=== PATIENT | female | born 2000 | race African-American/Black ===

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

== ENCOUNTER 2020-06-01 20:13 | Emergency (ER) | payer MEDICAID, OTHER ==
[~2020-06-01] VITALS: Ht 162.6 cm; Wt 80.0 kg
[2020-06-01 21:21] LABS: CLARITY URINE TURBID (CLEAR); COLOR URINE YELLOW (YELLOW); KETONES URINE TRACE (NEGATIVE); LEUKOCYTE ESTERASE URINE 3+ (NEGATIVE); NITRITE URINE NEGATIVE (NEGATIVE); OCCULT BLOOD URINE NEGATIVE (NEGATIVE); PH URINE 6.5 (4.5-8.0); PROTEIN URINE 1+ (NEGATIVE); SPECIFIC GRAVITY URINE 1.029 (1.005-1.030)
[2020-06-01 21:38] VITALS: BP 120/75
[2020-06-05 04:09] LABS: NEISSERIA GONORRHOEAE NAA Negative (Negative)
== END 2020-06-01 21:41 | disposition home or self-care (01) ==
LOC: ER 20:13
DX: N39.0 Urinary tract infection, site not specified (principal)
CPT/HCPCS: 81003; 87077; 87186; 87491; 87591; 99283

== ENCOUNTER 2021-06-21 09:26 | Emergency (ER) | payer OTHER ==
[~2021-06-21] VITALS: Ht 167.6 cm; Wt 91.0 kg
[2021-06-21] MEDS ORDERED: HYDROCODONE/ACETAMINOPHEN 5/325MG TABLET PO STA (09:47)
[2021-06-21 10:36] LABS: BASOPHILS % 0.3 % (0.0-2.0); EOSINOPHILS % 0.6 % (0.0-5.0); HEMATOCRIT. 43.5 % (36.0-48.0); HEMOGLOBIN. 14.8 g/dL (12.0-16.0); LYMPHOCYTES % 22.7 % (20.0-50.0); MEAN CORPUSCULAR VOLUME 91.1 fL (81.0-99.0); MEAN PLATELET VOLUME 8.3 fl (7.4-10.4); MONOCYTES % 11.8 % (2.0-8.0); NEUTROPHILS % 64.6 % (40.0-76.0); PLATELET 411 x1000/uL (130-400); RED BLOOD CELL COUNT 4.77 mill/uL (4.2-5.4); RED CELL DISTRIBUTION WIDTH 13.5 % (11.6-14.6)
[2021-06-21 10:42] LABS: CLARITY URINE CLOUDY (CLEAR); COLOR URINE DARK YELLOW (YELLOW); KETONES URINE 4+ (NEGATIVE); LEUKOCYTE ESTERASE URINE 1+ (NEGATIVE); NITRITE URINE NEGATIVE (NEGATIVE); OCCULT BLOOD URINE 1+ (NEGATIVE); PROTEIN URINE TRACE (NEGATIVE); SPECIFIC GRAVITY URINE 1.021 (1.005-1.030)
[2021-06-21 10:45] LABS: CHLORIDE 105 mEq/L (98-107)
[2021-06-21 10:48] LABS: HCG SCREEN NEGATIVE
[2021-06-21 11:14] VITALS: BP 114/67
[2021-06-21] MEDS ORDERED: TOPUD PO (11:56)
[2021-06-21] MEDS ORDERED: NITR100C PO (11:56)
== END 2021-06-21 13:05 | disposition home or self-care (01) ==
LOC: ER 09:35
DX: N39.0 Urinary tract infection, site not specified (principal)
CPT/HCPCS: 36415; 74176; 80053; 81003; 84703; 85025; 99284

== ENCOUNTER 2021-11-13 12:53 | Emergency (ER) | payer OTHER ==
[~2021-11-13] VITALS: Ht 162.6 cm; Wt 82.0 kg
[~2021-11-13 12:53] MED LIST: NITR100C PO; TOPUD PO
[2021-11-13] MEDS ORDERED: KETOROLAC 60MG/2ML VIAL IM ONE (17:00)
[2021-11-13] MEDS ORDERED: IBUP-2029 MT (17:41)
[2021-11-13] MEDS ORDERED: BENZ1LOZ73 MT (17:41)
[2021-11-13 18:13] VITALS: BP 115/78
== END 2021-11-13 18:13 | disposition home or self-care (01) ==
LOC: ER 12:53
DX: J02.9 Acute pharyngitis, unspecified (principal)
CPT/HCPCS: 81025; 96372; 99283; J1885

== ENCOUNTER 2023-02-20 12:04 | Emergency (ER) | payer OTHER ==
[~2023-02-20] VITALS: Ht 162.6 cm; Wt 91.0 kg
[~2023-02-20 12:04] MED LIST changes: +BENZ1LOZ73 MT; +IBUP-2029 MT
[2023-02-20 12:09] VITALS: BP 111/67; PULSE 86; RESP 20; TEMP 98.3; O2SAT 99
[2023-02-20] MEDS ORDERED: TETANUS, DIPHTHERIA, PERTUSSIS VAC/PF 0.5ML (>10YR OLD) IM ONE (13:30)
[2023-02-20] MEDS ORDERED: BACITRACIN ZINC OINT UDPKT TOP ONE (13:30)
[2023-02-20] MEDS ORDERED: LIDOCAINE HCL/PF 1% 10 MG/ML 5ML VIAL INFIL ONE (13:30)
== END 2023-02-20 14:44 | disposition left against medical advice (07) ==
LOC: ER 12:04
DX: S01.81XA Laceration without foreign body of other part of head, initial encounter (principal); J45.909 Unspecified asthma, uncomplicated; Y04.0XXA Assault by unarmed brawl or fight, initial encounter; Y93.89 Activity, other specified; Y92.89 Other specified places as the place of occurrence of the external cause; Y99.8 Other external cause status
CPT/HCPCS: 12011; 99282; Z7610

== ENCOUNTER 2024-06-09 20:55 | Emergency (ER) | payer MEDICAID, OTHER ==
[~2024-06-09] VITALS: Ht 162.6 cm; Wt 99.0 kg
[2024-06-09 21:04] VITALS: O2SAT 99
[2024-06-09] MEDS: KETOROLAC 30MG/ML VIAL IM ONE (23:28)
[2024-06-09] MEDS: ACETAMINOPHEN 325MG TABLET PO ONE (23:28)
[2024-06-10] MEDS ORDERED: LIDO700A15 TP (02:01)
[2024-06-10] MEDS ORDERED: ACET-2708 MT (02:01)
[2024-06-10] MEDS ORDERED: NAPR-679 MT (02:01)
[2024-06-10 02:37] VITALS: BP 124/63; PULSE 71; RESP 15; TEMP 36.5; O2SAT 99
== END 2024-06-10 02:43 | disposition home or self-care (01) ==
LOC: ER 20:55
DX: S20.219A Contusion of unspecified front wall of thorax, initial encounter (principal); M25.552 Pain in left hip; J45.909 Unspecified asthma, uncomplicated; Z79.1 Long term (current) use of non-steroidal anti-inflammatories (NSAID); W22.8XXA Striking against or struck by other objects, initial encounter; X58.XXXA Exposure to other specified factors, initial encounter; Y93.89 Activity, other specified; Y92.89 Other specified places as the place of occurrence of the external cause; Y99.8 Other external cause status
CPT/HCPCS: 99284; 81025; 71101; 73562; 96372; J1885